=== PATIENT | female | born 1980 | race Asian ===

== ENCOUNTER 2016-09-16 06:31 | Day surgery (SDC) | payer BC ==
[2016-09-16] MEDS: Lactated Ringers 1,000 ML IV SCH ×2 (07:10→12:56)
[2016-09-16] MEDS ORDERED: ceFAZolin 1 GM in Sodium Chloride 0.9% 50 ML IV ONE (07:30)
--- NOTE | 2016-09-16 07:40 | PCM.PN ---
- General Info Date of Service: 09/16/16 - Review of Systems Systems Review Comment:: 36 y/o female with symptomatic gallstones here for cholecystectomy. She is medically stable to proceed with no recent significant changes to her health status. I have discussed the proposed cholecystectomy with the patient. Indications discussed and options and risks discussed. These included but were not limited to bleeding, infection, organ injury, and possible need to convert to an open procedure. Anticipated post op restrictions and expectations also reviewed. Questions answered and she agrees to proceed. - Patient Data Weight - most recent: 137 lb Med Orders - Current: Current Medications Lactated Ringer's (Ringers, Lactated) 1,000 mls @ 125 mls/hr IV ASDIRECTED TOMASZ Last Admin: 09/16/16 07:10 Dose: 125 mls/hr Cefazolin Sodium 1 gm/ Sodium (Chloride) 50 mls @ 200 mls/hr IV ONETIME ONE Stop: 09/16/16 07:44 Last Admin: 09/16/16 07:15 Dose: 200 mls/hr - Problem List Review Problem List Initiated/Reviewed/Updated: Yes - My Orders Last 24 Hours: My Active Orders 09/16/16 06:30 Patient Status [ADT] Routine Patient to Empty Bladder [RC] ASDIRECTED Verify Patient Consent Obtain [RC] ASDIRECTED Lactated Ringers [Ringers, Lactated] 1,000 ml IV ASDIRECTED Peripheral IV Insertion Adult [OM.PC] Routine Sequential Compression Device [OM.PC] Routine 09/16/16 07:30 ceFAZolin [Ancef] 1 gm Sodium Chloride 0.9% [Normal Saline] 50 ml IV ONETIME 09/16/16 Breakfast Nothing Per Oral Diet [DIET] - Assessment Assessment:: Symptomatic Gallstones - Plan Plan:: Cholecystectomy
[2016-09-16] MEDS ORDERED: Bupivacaine 0.5%/EPINEPHrine 1:200,000 50 ML MDV INJECT ONE (08:07)
--- NOTE | 2016-09-16 09:30 | PCM.OPNOTE ---
- General Post-Op/Procedure Note Date of Surgery/Procedure: 09/16/16 Operative Procedure(s): Laproscopic Cholecystectomy Findings: Gallstones with chronic inflammation of gallbladder Pre Op Diagnosis: Symptomatic Gallstones Post-Op Diagnosis: Same Anesthesia Technique: General ET tube Primary Surgeon: Jessee Hull Pathology: Gallbladder with stones Output, Urine Amount: 0 EBL in mLs: 25 Complications: None Condition: Good
--- NOTE | 2016-09-16 11:19 | OR ---
DATE OF OPERATION: 09/16/2016 SURGEON: Jessee Hull MD PREOPERATIVE DIAGNOSIS: Symptomatic cholelithiasis. POSTOPERATIVE DIAGNOSIS: Symptomatic cholelithiasis. OPERATION PERFORMED: Laparoscopic cholecystectomy. INDICATIONS FOR SURGERY: This 36-year-old female has been having symptoms of upper abdominal pain and recent ultrasound showed cholelithiasis. FINDINGS: The patient's gallbladder does contain a large stone. It has some evidence of chronic inflammation with adhesions to its undersurface. The adjacent liver appears normal. She has had previous pelvic surgery but no other intraabdominal abnormalities were seen. PROCEDURE IN DETAIL: The patient was taken to the operating room. She was given general endotracheal anesthesia and the abdomen was sterilely prepped and draped. An infraumbilical curvilinear incision was made and the underlying fascia exposed. This was incised transversely and the corners of this incision are secured with 0 Vicryl sutures. Careful blunt dissection was then used to enter the peritoneal cavity and then under direct visualization, a Gay 12 mm trocar was placed and pneumoperitoneum was achieved with carbon dioxide to a pressure of 15 mmHg. Intra-abdominal inspection was carried out and attention was turned to the gallbladder. It was secured using grasping forceps placed through the lateral trocars and retracted superiorly and anteriorly. Adhesions to the undersurface of the gallbladder were carefully taken down. Some of these were taken down sharply and great care was used to avoid injury to the duodenum, which was adherent to the undersurface of the gallbladder. Once the duodenum had been cleared, blunt dissection was performed to identify the cystic duct. Additional dissection in the triangle of Calot identified vascular attachments including the cystic artery and these were secured with double clips. Once the cystic duct had been clearly and positively identified, it was milked and it too was doubly clipped and divided near the gallbladder with great care being used to avoid any possible injury or compromise to the common bile duct. Additional dissection was then carried out to separate the gallbladder from the undersurface of the liver. Cautery dissection was used and small vascular branches were also controlled with clips during this dissection. Eventually, the gallbladder was completely freed from the undersurface of the liver and it was extracted through the umbilical trocar site. Reinspection of the gallbladder bed was performed. Copious irrigation of this region was carried out with no sign of bleeding or any other complicating process. The trocars were removed under direct visualization and the pneumoperitoneum was evacuated. The fascia of the umbilical trocar site was closed with figure-of- eight 0 Vicryl sutures. Wounds were irrigated with Betadine and saline solution. Skin incisions were approximated with interrupted 4-0 Vicryl in a subcuticular stitch, Steri-Strips, and Benzoin. Antibiotic ointment and sterile dressings were placed. The patient was awakened, extubated, and taken from the operating room in satisfactory condition. ESTIMATED BLOOD LOSS: 25 mL. COMPLICATIONS: None. PROGNOSIS: Good. /[id number] DIDIER/SHAHNAZ MATA
[2016-09-16] MEDS ORDERED: Acetaminophen/HYDROcodone 325-5 MG Tab PO ONE (12:38)
[2016-09-16 14:01] VITALS: BP 120/66
== END 2016-09-16 13:50 | disposition home or self-care (01) ==
LOC: FB.SDS 06:31
PROVIDERS: ATTEND Surgery
PROC: 0FT44ZZ Resection of Gallbladder, Percutaneous Endoscopic Approach (ICD-10-PCS; principal; 2016-09-16)
DX: K80.10 Calculus of gallbladder with chronic cholecystitis without obstruction (principal); R59.0 Localized enlarged lymph nodes; R11.0 Nausea; F17.200 Nicotine dependence, unspecified, uncomplicated
CPT/HCPCS: 47562; 88304; J0690; J7050; J7120